=== PATIENT | male | born 1940 | race Caucasian/White ===

== ENCOUNTER 2025-04-23 19:13 | Inpatient (IN) | payer MEDICARE, SELFPAY ==
[2025-04-23 19:16] VITALS: BMI 22.7; BMI 23.6
[2025-04-23 19:17] VITALS: BP 155/70; PULSE 71; RESP 18; TEMP 36.1; O2SAT 96
[2025-04-23] MEDS: Senna/Docusate Sodium 1 Tablet 2 TABLET PO (21:00)
[2025-04-24 05:51] LABS: Hematocrit 31.1 % (40-54); Hemoglobin 10.8 g/dL (13.0-16.5); Immature Granulocytes Count 0.040 X10^3/uL (0.0-0.0); Mean Corp Hgb Conc 34.7 g/dL (32-36); Mean Corpuscular Volume 96.9 fL (80-94); Mean Platelet Vol. 10.3 fl (6.2-12.0); NRBC Flagged by Analyzer 0 % (0-5); Platelet Count 173 K/mm3 (150-450); RBC Distribution Width CV 13.1 % (11.6-14.6); RBC Distribution Width SD 46.0 fl (35.1-43.9); Red Blood Count 3.21 M/mm3 (4.6-6.2); White Blood Count 8.2 K/mm3 (4.4-11.0)
[2025-04-24 06:00] VITALS: BP 166/77; PULSE 78; RESP 20; TEMP 36.9; O2SAT 96
[2025-04-24 06:17] LABS: AST(SGOT) 22 U/L (<=37); Alanine Aminotransfer ALT/SGPT 11 U/L (<=46); Albumin, Serum 3.4 g/dL (3.4-4.8); Alkaline Phosphatase 78 U/L (40-129); Anion Gap 13 (5-15); BUN 13 mg/dL (4-19); BUN/Creat Ratio 8.5 RATIO (10-20); Calcium,Total 9.1 mg/dL (7.6-11.0); Carbon Dioxide 20.9 mmol/L (21.0-32.0); Chloride 106 mmol/L (98-108); Estimated Creatinine Clearance 38.94 ml/min (50-250); Globulin 2.8 g/dL (2.2-4.2); Glucose 169 mg/dL (70-99); Magnesium 1.6 mg/dL (1.5-2.2); Potassium 4.0 mmol/L (3.3-5.1)
[2025-04-24 08:20] VITALS: O2SAT 96
[2025-04-24 08:49] VITALS: BP 166/77; PULSE 78
[2025-04-24] MEDS: metFORMIN (XR) 500 MG Tablet PO ×2 (08:49→16:51)
[2025-04-24] MEDS: Senna/Docusate Sodium 1 Tablet 2 TABLET PO ×2 (08:49→21:08)
[2025-04-24] MEDS: Metoprolol(XL)Succ 50 MG Tablet PO (08:49)
[2025-04-24] MEDS: Cholecalciferol (VIT D3) 25 MCG TABLET (1,000 UNITS) 50 MCG PO (08:49)
--- NOTE | 2025-04-24 09:07 | PCM.HP.STD ---
[facility] Date of Admission: 04/23/25 Date of Service: 04/24/25 Chief Complaint: debility following a fall HPI Narrative EILEEN PORRAS, is a very pleasant 85 M who presents to inpatient rehab following closed head injury as a result of a fall on 04/19/25. Pt states that the last thing he remembered was him coming up the steps and that his had let the dog out. He remembers that the dog caused him to lose his balance and fall. He had +LOC. He did strike the concrete. Per documentation by EMS, he hid have a signficant hemeatoma to the L frontal region and was aao x 1, he was hypothermic, hypotensive and bradycardic. VS improved with warming. He was transported to [facility] ER as a level I trauma. Pt has medical hx of CAD, S/P CABG, DM, prostate issues., CKD III, hypothyroid and HTN. Last ECHO on 05/27/13 showed an LVEF of 55-60% with trace mild MR and thickening of the aortic valve cusps with out reduced EF. He has had catarac surgery bilaterally. During his hospitalization, he did have episodes of A-Fib with RVR. He was started on Metoprolol and has a 30 [address] monitor in place. He was treated for A-Fib with RVR, lactic acidosis, UTI,anemia, closed head injury with concussion precautions, subtle nondisplaced paranasal sinus fracture, He denies utilization of tobacco products. He did state that he has prostate issues and was started on some medication but he discontinued it when he got a sore on my bum. which he attributed to the medication. During this admission to Inpatient rehab, he was observed working with PT and requiring min assistance with ambulation. He is alert and oriented x 3. He does have some short term memory loss following the accident but is able to recall events leading up to the incident. He does state that the actual event is a little fuzzy. He currently denies chest pain, SOB, dizziness or MENDEZ. He has had some urinary retention upon admission to inpatient rehab and he was started on Flomax 0.4mg daily. He states that when he is at home, he enjoys tinkering in the garage and he enjoys helping others improve their classic cars. [place] He has a 150 lb. white lab and a cat. He is very talkative and pleasant. AAO x 3. His only complain is some mild R knee pain following his fall. He does have an abrasion to that knee and has a dressing that is clean, dry and intact. Will continue to monitor mental status. Pt was on Aspirin prior to fall but was discontinued rt his bleeding into his sinuses. The aspirin has be re-initiated during this admission. He does have bruising in various areas of healing to the Left frontal, bilateral eyes and cheeks. The L cheek spills into the L neck. Abrasions noted to L frontal, bilateral hands and knees. All questions answered. *This note was generated with [employer] dictation software. It may contain incorrect words, spelling, and punctuation that were not noted in checking the note before signing. [facility] Medical History (Updated 04/24/25 @ 10:44 by JIAN Garnica) Afib Cataract HTN (hypertension), benign COVID-19 CKD (chronic kidney disease) stage 3, GFR 30-59 ml/min BPH (benign prostatic hyperplasia) Anemia CABG (coronary artery bypass graft) planned Diabetes CAD (coronary artery disease) Home Medications ?Medication ?Instructions ?Recorded ?Last Taken ?Type aspirin 81 mg tablet 81 mg PO DAILY AFIB 04/23/25 Unknown History atorvastatin 40 mg tablet (Lipitor) 40 mg PO QHS cholesterol 04/23/25 Unknown History cholecalciferol (vitamin D3) 50 50 mcg PO DAILY supplement 04/23/25 Unknown History mcg (2,000 unit) capsule glipizide 10 mg tablet 10 mg PO BID diabetes 04/23/25 Unknown History levothyroxine 88 mcg capsule 88 mcg PO DAILY thyroid 04/23/25 Unknown History lisinopril 20 mg tablet 20 mg PO DAILY blood pressure 04/23/25 Unknown History metformin 500 mg tablet,extended 500 mg PO BID diabetes 04/23/25 Unknown History release 24 hr (Glucophage XR) metoprolol succinate 50 mg 50 mg PO DAILY heart rate 04/23/25 Unknown History tablet,extended release 24 hr Allergy/AdvReac Type Severity Reaction Status Date / Time doxazosin (From Cardura) Allergy Unknown unknown Verified 04/23/25 19:19 empagliflozin (From Allergy Unknown unknow Verified 04/23/25 19:19 Jardiance) Family History unable to obtain no significant family history Surgical History Hx of CABG Social History household members: none Smoking Status: Never smoker ROS Constitutional Constitutional: Reports systems reviewed and no addt'l complaints, except as documented Eyes Eyes: Reports systems reviewed and no addt'l complaints, except as documented ENT HEENT: Reports hearing loss Cardiovascular Cardiovascular: Reports as per HPI Respiratory/Chest Respiratory/Chest: Reports systems reviewed and no addt'l complaints, except as documented Gastrointestinal Gastrointestinal: Reports systems reviewed and no addt'l complaints, except as documented Genitourinary Genitourinary: Reports other Details: prostate issues Musculoskeletal Musculoskeletal: Reports as per HPI and other Details: R knee pain from fall Integumentary Integumentary: Reports wounds and other Details: multiple from fall Neurologic Neurologic: Reports systems reviewed and no addt'l complaints, except as documented Psychiatric Psychiatric: Reports systems reviewed and no addt'l complaints, except as documented Endocrine Endocrinology: Reports systems reviewed and no addt'l complaints, except as documented Hematologic/Lymphatic Hematologic/Lymphatic: Reports systems reviewed and no addt'l complaints, except as documented Allergic/Immunologic Allergic/Immunologic: Reports systems reviewed and no addt'l complaints, except as documented Vital Signs Vital Signs Vital Signs: 04/23/25 19:17 04/23/25 20:51 04/24/25 06:00 Temperature 97 F L 98.5 F Temperature Source Temporal Oral Pulse Rate 71 78 Respiratory Rate 18 20 H Respiratory Effort Normal Respiratory Depth Normal Respiratory Pattern Normal Blood Pressure 155/70 H 166/77 H Blood Pressure Mean 98 106 Blood Pressure Source Monitor Monitor Blood Pressure Position Semi-Fowlers Semi-Fowlers Blood Pressure Location Left Arm Right Arm Pulse Ox 96 96 Oxygen Delivery Method Room Air Room Air Room Air 04/24/25 08:20 04/24/25 08:49 Temperature Temperature Source Pulse Rate 78 Respiratory Rate Respiratory Effort Respiratory Depth Respiratory Pattern Blood Pressure 166/77 H Blood Pressure Mean Blood Pressure Source Blood Pressure Position Blood Pressure Location Pulse Ox 96 Oxygen Delivery Method Room Air Weight Weight: 174 lb Body Mass Index (BMI) 23.6 Physical Exam Narrative 30 day [address] monitor in place to L chest wall Const alert, oriented x3, no apparent distress, average body habitus and well nourished General Appearance: cooperative Orientation / Consciousness: awake, oriented to person, oriented to place and oriented to time Exam Limitations: no limitations HEENT normocephalic HEENT Narrative: multiple areas of bruising in various stages of healing.(bilateral periorbital, L frontal, bilateral cheeks and the left side descends into the L side of the neck.) Abrasions to the L frontal and bridge of the nose. Head and Scalp: abrasion Results Lab / Micro Data Attestation: I reviewed the patient's lab results. Lab results narrative: from prior hospitalization and current. 04/24/25 05:32 04/24/25 05:32 Labs: Laboratory Results - last 24 hr 04/23/25 20:26: POC Glucose 143 H 04/24/25 05:32: WBC 8.2, RBC 3.21 L, Hgb 10.8 L, Hct 31.1 L, MCV 96.9 H, MCH 33.6 H, MCHC 34.7, RDW Std Deviation 46.0 H, RDW Coeff of Maryjane 13.1, Plt Count 173, MPV 10.3, Immature Gran % (Auto) 0.500, Neut % (Auto) 67.8, Lymph % (Auto) 17.4 L, Hopkins % (Auto) 9.7, Eos % (Auto) 4.2, Baso % (Auto) 0.4, Absolute Neuts (auto) 5.5, Absolute Lymphs (auto) 1.42, Nucleated RBC % 0, Sodium 139, Potassium 4.0, Chloride 106, Carbon Dioxide 20.9 L, Anion Gap 13, BUN 13, Creatinine 1.55 H, Estim Creat Clear Calc 38.94 L, Est GFR (MDRD) Non-Af 44 L, BUN/Creatinine Ratio 8.5 L, Glucose 169 H, Calcium 9.1, Phosphorus 3.2, Magnesium 1.6, Total Bilirubin 0.53, AST 22, ALT 11, Alkaline Phosphatase 78, Total Protein 6.2, Albumin 3.4, Globulin 2.8, Albumin/Globulin Ratio 1.2 04/24/25 06:50: POC Glucose 159 H Assessment & Plan Assessment/Plan (1) Closed head injury with concussion: QUALIFIERS: Encounter type: subsequent encounter Loss of consciousness presence/duration: with LOC of 30 min or less Qualified Code(s): S06.0X1D - Concussion with loss of consciousness of 30 minutes or less, subsequent encounter (2) Physical debility: (3) BPH (benign prostatic hyperplasia): QUALIFIERS: Lower urinary tract symptom presence: symptoms present Lower urinary tract symptom detail: incomplete bladder emptying Qualified Code(s): N40.1 - Benign prostatic hyperplasia with lower urinary tract symptoms; R39.14 - Feeling of incomplete bladder emptying (4) Afib: QUALIFIERS: Atrial fibrillation type: unspecified Qualified Code(s): I48.91 - Unspecified atrial fibrillation (5) HTN (hypertension): QUALIFIERS: Hypertension type: primary hypertension Qualified Code(s): I10 - Essential (primary) hypertension (6) Hypothyroid: QUALIFIERS: Hypothyroidism type: unspecified Qualified Code(s): E03.9 - Hypothyroidism, unspecified (7) CKD (chronic kidney disease) stage 3, GFR 30-59 ml/min: QUALIFIERS: Chronic kidney disease stage 3 subtype: unspecified whether 3a or 3b Qualified Code(s): N18.30 - Chronic kidney disease, stage 3 unspecified (8) Diabetes mellitus, type 2: QUALIFIERS: Diabetes mellitus blow down operator insulin use: without penitentiary use Diabetes mellitus complication status: with kidney complications Diabetes mellitus complication detail: with chronic kidney disease Chronic kidney disease stage 3 subtype: unspecified whether 3a or 3b PLAN: Plan *Continue with therapies PT/OT/ST *Scheduled Tylenol 650 mg p.o. every 6 hours for pain *Aspirin 81 mg p.o. daily *Atorvastatin 20 mg p.o. nightly *Hypoglycemic precautions *Fall precautions *Glipizide 10 mg p.o. twice daily *Insulin lispro AC/at bedtime sliding scale as needed labs *levothyroxine 88 mcg p.o. daily *Blood sugars per protocol *Lisinopril 20 mg p.o. daily *Metoprolol XL succinate 50 mg p.o. daily *Tamsulosin hydrocloride 0.4 mg p.o. daily *Strict monitoring of I's and O's *Bladder scan for urinary retention *Carb controlled diet *CAMRYN ching *SCDs if in bed and not ambulating *assess for changes in mental status *Event monitor in place *Monitor CBC and BMP every 3 days Charges/Coding Visit Charges Inpatient E&M: 59265 Init Hosp L2
--- NOTE | 2025-04-24 10:51 | REHABEVAL_ITS ---
Admission Information Primary Diagnosis:: Debility following a fall with closed head injury Status Changes from Prescreening?: No changes Identified Actual Problem List:: Falls, Skin Intergrity, Cognitve Impr/Memory Loss, Mobility Impaired, Self Care Deficit, Know.Dfct/Disease Process, Know.Dfct of Medicaitons, Diabetes, Hyperglycemia and BP, Hypertension Potential Problem List:: DVT, Bleeding, Infection, UTI, Falls, Skin Integrity and Depression Risk of Complications DVT: CAMRYN Hose and Sequential Compression Device Bleeding: Monitor Lab Values, Wound, if applicable, to be assessed every shift. and Stroke patients assessed for lethargy or change in status. Infection: Clinical Staff to Monitor for S/S of infection: Urinary Tract Infection: Monitor for frequency, burning, discomfort, or incontinence. Falls: Patient will be evaluated for Fall Precautions and Patient will be placed on Fall Precautions as indicated per protocol. Skin Breakdown: Nursing will assess skin daily using assessment tool. Pain: Clinical staff will assess patient's pain level per protocol., Medications will be given, if needed, and the pain level reassessed. and Other methods: Massage, distraction, decrease stimulus, etc. used PRN. Plan of Care Patient requires physician specializing in physical medicine and rehab oversight to provide close medical supervision of rehab issues including: Pain Management, Bowel and Bladder, Medical and co-morbidity Management, DVT prophylaxis, Rehabilitation Leadership and Coordination of treatment team Patient needs Physical Therapy: For a minimum of 1 hour and At least 5 out of 7 days Patient needs Physical Therapy to improve:: Mobility, Strengthening, Transfers, Stretching, ROM, Endurance, Stairs, Gait and Balance Patient needs Occupational Therapy: For a minimum of 1 hour and At least 5 out of 7 days Patient needs Occupational Therapy to improve ADL's incl.: Eating, Grooming, Bathing, Dressing, Toileting, Toilet transfers, Community Reintegration, Higher functioning activities, Household tasks, Adaptive Equipment, Splinting and Other activities as determined Patient requires speech therapy: For a minimum of 1 hour and At least 5 out of 7 days Patient requires speech therapy for: Swallowing, Cognition, Language Skills and Compensatory Strategies Patient requires 24/7 Rehabilitation Nursing for: Pain Issues, Identifying and preventing risk factors, Monitoring and reporting current medical conditions, Assisting with ambulation, transfer, and all ADL's, Teaching patients about disease process and medications, Family teaching, Providing safe environment, Bowel and Bladder Issues, Skin integrity and Medication Management Patient needs Route Process Administrator/ Case Management for: Discharge Planning, Arranging Home Equipment or Services and Family Interventions Patient needs Dietary and Nutrition Services for: Adequate Nutrition, Nutritional Supplements and Nutritional Education Goals Goals Patient will remain: free from falls and or injury at time of discharge. Patient will perform eating at: Standby Assist. Patient will perform bed mobility at: Standby Assist. Patient will complete transfers from bed to chair at: Standby Assist. Patient will ambulate: 100 feet and with LRD Patient will complete upper body dressing at: MOD I level of assist. Patient will complete lower body dressing at: MOD I level of assist. Patient will complete toileting at: MOD I level of assist. Patient will perform bathing at: MOD I level of assist. Patient will complete grooming at: MOD I level of assist. Patient will complete home management skills at: MOD I level of assist. Patient will achieve: - (1 curb step) Patient will have pain level of: of 3 or less Patient's skin will: remain intact Patient will receive: adequate nutrition. Discharge Planning Pt Prognosis for Sig. Practical Improv. w/in Reasonable Time: Good Estimated Length of stay (days): 14 Anticipated D/C Destination: Home w/ family or friends Was Preadmission Assessment Accurate?: Yes
[2025-04-24 18:00] VITALS: BP 144/70; PULSE 70; RESP 16; TEMP 37.2; O2SAT 97
[2025-04-24 21:00] VITALS: BP 131/59; PULSE 62; RESP 16; TEMP 36.9; O2SAT 95
[2025-04-24 22:00] VITALS: RESP 16
[2025-04-25 06:00] VITALS: BP 131/65; PULSE 77; RESP 16; TEMP 37.1; O2SAT 95; BMI 22.3
[2025-04-25 09:27] VITALS: PULSE 77
[2025-04-25] MEDS: metFORMIN (XR) 500 MG Tablet PO ×2 (09:27→16:42)
[2025-04-25] MEDS: Metoprolol(XL)Succ 50 MG Tablet PO (09:27)
[2025-04-25] MEDS: Cholecalciferol (VIT D3) 25 MCG TABLET (1,000 UNITS) 50 MCG PO (09:27)
[2025-04-25] MEDS: Senna/Docusate Sodium 1 Tablet 2 TABLET PO ×2 (09:27→20:40)
--- NOTE | 2025-04-25 10:33 | PN_ITS ---
Subjective Subjective Afebrile VSS -systolic blood pressures have been mildly elevated but the diastolics are always within goal. Heart rate is within normal limits. Maintaining appropriate oxygen saturation on RA-95 to 97%. Oral intake - FOOD good FLUIDS poor's are under 190. No hypoglycemia. Currently taking glipizide 10 mg twice daily and metformin 500 mg twice daily. If his kidney function continues to deteriorate we will need to consider discontinuing glipizide and starting Amaryl and discontinuing metformin due to increased risk for acidosis. Discussed with nursing - no problems that need addressed Reviewed the THERAPY notes -scored only 30 out of a possible 50 on the BCAT. Medication list reviewed. He was started on Flomax yesterday for urine retention. I reviewed all the labs from yesterday. Hemoglobin is 10.8 and we have no baseline on this patient. MCV is mildly increased at 96.9 and the RDW is elevated. Platelets are within normal limits. Differential was unremarkable. Sodium is 139 and the potassium is 4.0. BUN is 13 and the creatinine is 1.55. Creatinine at the previous hospital ranged from 1.55-1.66. GFR is 44 which is consistent with stage IIIb chronic renal failure. Calcium is 9.1. Magnesium is low at 1.6. LFTs are normal. Jonathan denies lightheadedness, vertigo, cephalgia, chest pain, shortness of breath, cough, nausea/vomiting/abdominal pain, dysuria and calf tenderness. He really has no complaints today. Objective Data Objective Data Vital Signs: Vital Signs Temp Pulse Resp BP Pulse Ox O2 Del Method 98.8 F 77 16 131/65 H 95 Room Air 04/25/25 06:00 04/25/25 09:27 04/25/25 06:00 04/25/25 06:00 04/25/25 06:00 04/25/25 06:00 Oxygen Delivery Method Room Air Weight: 164 lb 8.929 oz Body Mass Index (BMI) 22.3 Intake & Output: Intake and Output for Last 24 Hours 04/23/25 04/24/25 04/25/25 23:59 23:59 23:59 Intake Total 630 / 630 390 / 390 Output Total 100 / 300 2150 / 2150 550 / 550 Balance -100 / -300 -1520 / -1520 -160 / -160 Lab / Micro Data 04/28/25 05:35 04/28/25 05:35 Labs: Laboratory Results - last 24 hr 04/24/25 11:21: POC Glucose 188 H 04/24/25 16:29: POC Glucose 156 H 04/24/25 21:05: POC Glucose 181 H 04/25/25 06:46: POC Glucose 126 H Physical Exam Const alert and no apparent distress General Appearance: cooperative Resp normal respiratory effort and clear to auscultation bilaterally Cardio regular rate, regular rhythm, no rub and no gallops Cardio Narrative: No ectopy. Heart monitor is present on the chest. GI normal to inspection, nondistended, normoactive bowel sounds, soft to palpation and non-tender Extremity no calf tenderness General Extremity: Negative for edema Skin Skin Narrative: Multiple healing abrasions and bruising on the face. Assessment & Plan Assessment/Plan (1) Physical debility: (2) Closed head injury with concussion: QUALIFIERS: Encounter type: subsequent encounter Loss of consciousness presence/duration: with LOC of 30 min or less Qualified Code(s): S06.0X1D - Concussion with loss of consciousness of 30 minutes or less, subsequent encounter PLAN: Due to a fall caused by his dog. (3) BPH (benign prostatic hyperplasia): QUALIFIERS: Lower urinary tract symptom presence: symptoms present Lower urinary tract symptom detail: incomplete bladder emptying Qualified Code(s): N40.1 - Benign prostatic hyperplasia with lower urinary tract symptoms; R39.14 - Feeling of incomplete bladder emptying PLAN: With urine retention. Flomax started. (4) Afib: QUALIFIERS: Atrial fibrillation type: unspecified Qualified Code(s): I48.91 - Unspecified atrial fibrillation (5) HTN (hypertension): QUALIFIERS: Hypertension type: primary hypertension Qualified Code(s): I10 - Essential (primary) hypertension (6) Hypothyroid: QUALIFIERS: Hypothyroidism type: unspecified Qualified Code(s): E 03.9 - Hypothyroidism, unspecified (7) CKD (chronic kidney disease) stage 3, GFR 30-59 ml/min: QUALIFIERS: Chronic kidney disease stage 3 subtype: stage 3b (GFR 30-44) Qualified Code(s): N18.32 - Chronic kidney disease, stage 3b (8) Diabetes mellitus, type 2: QUALIFIERS: Diabetes mellitus chcf insulin use: without terminal block assembler use Diabetes mellitus complication status: with kidney complications D iabetes mellitus complication detail: with chronic kidney disease Chronic kidney disease stage 3 subtype: stage 3b (GFR 30-44) Chronic kidney disease stage: stage 3 (moderate) Qualified Code(s): E11.22 - Type 2 diabetes mellitus with diabetic chronic kidney disease; N18.32 - Chronic kidney disease, stage 3b (9) Hypomagnesemia: (10) Metabolic acidosis: (11) Normochromic normocytic anemia: PLAN: Plan 1. Continue therapy 2. Start a magnesium supplement 3. Recheck a BMP, magnesium and H&H on Monday Charges/Coding Visit Charges Inpatient E&M: 98799 Subs Hosp L1
[2025-04-25 17:05] VITALS: BP 149/66; PULSE 53; RESP 17; TEMP 36.8; O2SAT 99
[2025-04-25] MEDS: Magnesium Chloride 64 MG Delay Rel.Tablet 128 MG PO (20:40)
[2025-04-26 05:20] VITALS: BP 146/63; PULSE 77; RESP 17; TEMP 36.4; O2SAT 95
[2025-04-26 08:52] VITALS: PULSE 77
[2025-04-26] MEDS: Senna/Docusate Sodium 1 Tablet 2 TABLET PO ×2 (08:52→23:10)
[2025-04-26] MEDS: Metoprolol(XL)Succ 50 MG Tablet PO (08:52)
[2025-04-26] MEDS: metFORMIN (XR) 500 MG Tablet PO ×2 (08:53→16:44)
[2025-04-26] MEDS: Magnesium Chloride 64 MG Delay Rel.Tablet 128 MG PO ×2 (08:53→23:10)
[2025-04-26] MEDS: Cholecalciferol (VIT D3) 25 MCG TABLET (1,000 UNITS) 50 MCG PO (08:54)
[2025-04-26 18:00] VITALS: BP 144/69; PULSE 68; RESP 16; TEMP 37.2; O2SAT 98
[2025-04-27 06:00] VITALS: BP 143/67; PULSE 68; RESP 17; TEMP 37.6; O2SAT 98
[2025-04-27 07:04] VITALS: O2SAT 95
[2025-04-27 09:15] VITALS: BP 128/72; PULSE 83
[2025-04-27] MEDS: Cholecalciferol (VIT D3) 25 MCG TABLET (1,000 UNITS) 50 MCG PO (09:15)
[2025-04-27] MEDS: Magnesium Chloride 64 MG Delay Rel.Tablet 128 MG PO ×2 (09:15→21:37)
[2025-04-27] MEDS: Metoprolol(XL)Succ 50 MG Tablet PO (09:15)
[2025-04-27] MEDS: Senna/Docusate Sodium 1 Tablet 2 TABLET PO ×2 (09:16→21:37)
[2025-04-27] MEDS: metFORMIN (XR) 500 MG Tablet PO ×2 (09:16→17:35)
[2025-04-27 18:00] VITALS: BP 137/61; PULSE 72; RESP 16; TEMP 36.6; O2SAT 96
[2025-04-27 21:30] VITALS: BP 139/69; PULSE 62; RESP 16; TEMP 37.1; O2SAT 96
[2025-04-28 05:42] LABS: Hematocrit 28.6 % (40-54); Hemoglobin 9.8 g/dL (13.0-16.5)
[2025-04-28 06:00] VITALS: BP 141/60; PULSE 71; RESP 16; TEMP 36.3; O2SAT 96
[2025-04-28 06:06] LABS: Anion Gap 11 (5-15); BUN 28 mg/dL (4-19); BUN/Creat Ratio 17.1 RATIO (10-20); Calcium,Total 9.7 mg/dL (7.6-11.0); Carbon Dioxide 20.0 mmol/L (21.0-32.0); Chloride 108 mmol/L (98-108); Estimated Creatinine Clearance 35.84 ml/min (50-250); Glucose 146 mg/dL (70-99); Magnesium 1.6 mg/dL (1.5-2.2); Potassium 4.3 mmol/L (3.3-5.1)
--- NOTE | 2025-04-28 08:01 | PCM.PROGNOTE ---
Subjective Subjective Jonathan was seen on team rounds today. Family was present in the room. All questions were answered to their satisfaction. Afebrile VSS -blood pressure over the weekend has ranged from 128/72 to 146/63. Diastolics are always within normal limits. Systolics are mildly elevated usually. Heart rate is ranged from 62-83. Maintaining appropriate oxygen saturation on RA Oral intake - FOOD good FLUIDS fair to good The blood sugar record was reviewed. Blood sugars over the weekend been under 160. No hypoglycemia. Discussed with nursing - no problems that need addressed Reviewed the THERAPY notes -speech therapy administered the verbal test of practical judgment today and the results indicate marked impairment in everyday judgment and decision making. He had limited ability to identify safe and appropriate responses to common ADL and IADL situations. Findings support the need for supervision and assistance with med management, emergency planning and other high-level daily tasks. Medication list reviewed. Hemoglobin today is 9.8, down from 10.8 on 04/24/2025. Sodium is 139 and the potassium is 4.3. Serum bicarb is mildly decreased at 20 from 20.9 on 04/24/2025. The BUN is up to 28 from 13 and the creatinine is up from 1.55-1.62 which is within his baseline. Magnesium is still low at 1.6. Jonathan denies lightheadedness, visual disturbance, cephalgia, chest pain, shortness of breath, cough, nausea/vomiting/abdominal pain, calf tenderness and dysuria. The last 3 postvoid residuals are elevated but none over 300. Family tells me that they have noticed that his memory has been declining. He has not seen a neurologist. Objective Data Objective Data Vital Signs: Vital Signs Temp Pulse Resp BP Pulse Ox O2 Del Method 97.3 F L 71 16 141/60 H 96 Room Air 04/28/25 06:00 04/28/25 06:00 04/28/25 06:00 04/28/25 06:00 04/28/25 06:00 04/28/25 06:00 Oxygen Delivery Method Room Air Weight: 164 lb 8.929 oz Body Mass Index (BMI) 22.3 Intake & Output: Intake and Output for Last 24 Hours 04/26/25 04/27/25 04/28/25 23:59 23:59 23:59 Intake Total 1430 / 1430 1175 / 1175 300 / 300 Output Total 1300 / 1725 1400 / 1600 875 / 875 Balance 130 / -295 -225 / -425 -575 / -575 Lab / Micro Data 04/28/25 05:35 04/28/25 05:35 Labs: Laboratory Results - last 24 hr 04/27/25 11:43: POC Glucose 164 H 04/27/25 16:00: POC Glucose 147 H 04/27/25 21:34: POC Glucose 130 H 04/28/25 05:35: Hgb 9.8 L, Hct 28.6 L, Sodium 139, Potassium 4.3, Chloride 108, Carbon Dioxide 20.0 L, Anion Gap 11, BUN 28 H, Creatinine 1.62 H, Estim Creat Clear Calc 35.84 L, Est GFR (MDRD) Non-Af 42 L, BUN/Creatinine Ratio 17.1, Glucose 146 H, Calcium 9.7, Magnesium 1.6 04/28/25 06:39: POC Glucose 128 H Physical Exam Const alert and no apparent distress General Appearance: cooperative HEENT moist oral mucous membranes Resp normal respiratory effort and clear to auscultation bilaterally Cardio regular rate, regular rhythm, no rub and no gallops Cardio Narrative: No ectopy. Heart monitor is present on the chest. GI normal to inspection, nondistended, normoactive bowel sounds, soft to palpation and non-tender Extremity no calf tenderness General Extremity: Negative for edema Skin Skin Narrative: Most of the eschars on his forehead have fallen off or picked off by Jonathan. He has 1 suture in the left forehead that will need to be removed today. There is no redness, no discharge. He has resolving ecchymosis on both sides of his face. Assessment & Plan Assessment/Plan (1) Physical debility: (2) Closed head injury with concussion: QUALIFIERS: Encounter type: subsequent encounter Loss of consciousness presence/duration: with LOC of 30 min or less Qualified Code(s): S06.0X1D - Concussion with loss of consciousness of 30 minutes or less, subsequent encounter (3) BPH (benign prostatic hyperplasia): QUALIFIERS: Lower urinary tract symptom detail: incomplete bladder emptying Lower urinary tract symptom presence: symptoms present Qualified Code(s): N40.1 - Benign prostatic hyperplasia with lower urinary tract symptoms; R39.14 - Feeling of incomplete bladder emptying (4) Afib: QUALIFIERS: Atrial fibrillation type: unspecified Qualified Code(s): I48.91 - Unspecified atrial fibrillation (5) HTN (hypertension): QUALIFIERS: Hypertension type: primary hypertension Qualified Code(s): I10 - Essential (primary) hypertension (6) Hypothyroid: QUALIFIERS: Hypothyroidism type: unspecified Qualified Code(s): E03.9 - Hypothyroidism, unspecified (7) CKD (chronic kidney disease) stage 3, GFR 30-59 ml/min: QUALIFIERS: Chronic kidney disease stage 3 subtype: stage 3b (GFR 30-44) Qualified Code(s): N18.32 - Chronic kidney disease, stage 3b (8) Diabetes mellitus, type 2: QUALIFIERS: Chronic kidney disease stage: stage 3 (moderate) Chronic kidney disease stage 3 subtype: stage 3b (GFR 30-44) Diabetes mellitus complication detail: with chronic kidney disease Diabetes mellitus complication status: with kidney complications Diabetes mellitus longterm insulin use: without watermelon inspector use Qualified Code(s): E11.22 - Type 2 diabetes mellitus with diabetic chronic kidney disease; N18.32 - Chronic kidney disease, stage 3b (9) Hypomagnesemia: (10) Metabolic acidosis: (11) Normochromic normocytic anemia: (12) Cognitive dysfunction: PLAN: Plan 1. Continue therapy 2. Discontinue metformin due to mild metabolic acidosis. Continue to monitor blood sugars AC and at bedtime. 3. Checking Hemoccult stool 4. Continue magnesium chloride 128 mg twice daily and recheck, magnesium at the end of the week. If it is still low will administer intravenous mag sulfate. 5. Check orthostatic vital signs today since he is on Flomax. 6. He is doing well with physical therapy. He will need supervision at home and med management. Will need to determine with family who is managing finances and medications. He is doing very well with physical and Occupational Therapy. His family is able to provide med management and supervision. They would like to take him home tomorrow. We discussed seeing neurology for traumatic brain injury and possible dementia but they prefer to discuss this with their primary care physician. Will plan on discharge tomorrow to home with ongoing speech therapy. Charges/Coding Visit Charges Inpatient E&M: 15907 Subs Hosp L2
[2025-04-28] MEDS: Cholecalciferol (VIT D3) 25 MCG TABLET (1,000 UNITS) 50 MCG PO (08:10)
[2025-04-28] MEDS: Magnesium Chloride 64 MG Delay Rel.Tablet 128 MG PO ×2 (08:11→22:43)
[2025-04-28] MEDS: Senna/Docusate Sodium 1 Tablet 2 TABLET PO (08:11)
[2025-04-28 08:12] VITALS: PULSE 71
[2025-04-28] MEDS: Metoprolol(XL)Succ 50 MG Tablet PO (08:12)
[2025-04-28 11:25] VITALS: BP 107/62; BP 111/60; BP 136/60; PULSE 69; PULSE 74
[2025-04-28 12:04] LABS: Vitamin B12 198 pg/mL (180-914)
--- NOTE | 2025-04-28 12:43 | CASEMGMT ---
Addendum entered by Wendy Cruz 04/28/25 13:19: Asked about advance directives and pt does not have any completed. SW cannot complete currently with cognition. SW encouraged to have PCP evaluate completing those forms in the future, otherwise, is NOK. expressed understanding. Original Note: Social Work IDT met with patient, and dtr for Team meeting. 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 Educated to [facility] insurance with [employer] 04/29 and continued stay is not guaranteed with each review. Pt is progressing well; [place]. Pt will need 12/12 supervision/assist with cognitive activities. Pt has poor safety awareness. IDT offered to set DC date and family agreeable, requesting tomorrow 04/29. IDT agreeable. Pt has no DME needs. Recommending outpatient ST therapy. prefers [place] area. SW to review options and coordinate with to schedule first appt. Plan: DC home with 04/29, Outpatient [facility] Wendy Cruz [employer]ERR[employer]
--- NOTE | 2025-04-28 14:39 | PCM.DC ---
Discharge Instructions DC O2, CPAP, BIPAP needs Home O2 Discharge instructions: No Dressing / Incision Discharge Activity: May Not Drive and Use Walker (or a cane) Weight Bearing Status: Full weight bearing Dressing / Incision Call your doctor if you observe: Fever of 101 or Higher, Inability to urinate, Shortness of breath, Dizziness, Fainting spells, Swelling in the ankles, Chest pain, Increased palpitations (irregular heartbeat), Calf discomfort, Uncontrolled pain and - (STROKE symptoms: facial droop, slurred speech, inability to get words out, weakness on 1 side of the body and not the other, numbness on 1 side of the body and not the other, inability to maintain your balance sitting or standing, vertigo. ) Follow Up Care Please Follow Up With: Toyin Maxwell DO When: 04/30/2025 at 11 AM Test Results: Test results from this visit will be discussed in further detail at your follow-up appointment, if applicable. Pending Tests Upon Discharge: None Discharge Plan Admission Admit Date/Time: 04/23/25 19:13 Primary Reason for Your Visit: Closed head injury/TBI Attending Provider: Mansi Mazariegos Primary Care Provider: Toyin Maxwell Instructions Patient Instructions: Alzheimer Disease, A-Fib Additional Instructions / Restrictions: 1. You had some small fractures of the sinuses with bleeding into the sinuses. Should you develop any face pain, fevers, dental pain, purulent discharge from the nose call your family physician. 2. You have problems with your prostate and you do not completely empty your bladder when you urinate. You were started on a medication called Flomax to improve the emptying of the bladder. In men who retain urine they are more likely to get urinary tract infections. The symptoms of urinary tract infection are burning with urination, increased frequency of urination, urinary urgency, nausea/vomiting, flank pain and increased confusion. If you have any of the symptoms call your family doctor. 3. You had a problem with the rhythm of your heart called atrial fibrillation. Atrial fibrillation can be intermittent and it increases the risk of stroke approximately 5 times. You have not been in atrial fibrillation when I have examined you on rehab. You are wearing a heart monitor and you will need to mail this back at the conclusion of the 30-day monitoring period. A management information systems director will review this and send a report to your primary care doctor. If you do have atrial fibrillation you may need to start an anticoagulant to prevent strokes. 4. The speech therapist at the hospital did an evaluation of your thought processes. We did a test called a brief cognitive assessment tool and it is a 50 point test. Out of 50 points you scored a 30 which is consistent with significant cognitive dysfunction. I suspect you have an underlying problem with memory which may have been exacerbated by the traumatic brain injury. I have given you some literature to read about Alzheimer's disease and possible treatments. Your doctor may want to refer you to a neurologist to be evaluated. You should have someone help you set up your pillboxes and manage your medications. 5. Your magnesium level is low and this can cause atrial fibrillation. You have been started on a magnesium supplement that you will take twice daily. Your doctor will want to repeat your magnesium level in another couple weeks. 6. You have chronic kidney disease. There are 5 stages of kidney failure. You are in stage III which is moderate kidney disease. Metformin can make acid accumulate in your blood when you have chronic kidney disease and so this medication was discontinued. You will continue to take glyburide. If your kidney function gets worse you will likely need to stop glimepiride and transition to another diabetic medication called Amaryl which is not excreted through the kidneys. Your doctor will want to keep track of your kidney function. 7. Your blood pressure drops a little when you go from lying to sitting and sitting to standing. You have no symptoms with this mild drop in blood pressures so there is no need to do anything at this point other than to make sure you drink plenty of fluids during the day. 8. If you or your family have any questions after you leave rehab please do not hesitate to call me. OFFICE: [phone] CELL: [phone] NURSES STATION ON REHAB: [phone] Discharge Orders/Prescriptions Prescriptions: New acetaminophen 325 mg Tablet 650 mg PO Q6H PRN PRN (Reason: Pain Score 1-10) Qty: 1 0RF tamsulosin 0.4 mg Capsule 0.4 mg PO DAILY@1730 Qty: 30 0RF magnesium chloride [Mag 64] 64 mg Tablet,Delayed Release (Dr/Ec) 128 mg PO BID Qty: 60 0RF Continued aspirin 81 mg tablet 81 mg PO DAILY cholecalciferol (vitamin D3) 50 mcg (2,000 unit) capsule 50 mcg PO DAILY glipizide 10 mg tablet 10 mg PO BID levothyroxine 88 mcg capsule 88 mcg PO DAILY lisinopril 20 mg tablet 20 mg PO DAILY metoprolol succinate 50 mg tablet extended release 24 hr 50 mg PO DAILY atorvastatin [Lipitor] 40 mg tablet 40 mg PO QHS Qty: 30 0RF Discontinued metformin [Glucophage XR] 500 mg tablet extended release 24 hr 500 mg PO BID Referrals / Follow Up: Toyin Maxwell DO [Primary Care Provider, Family Practice] - 04/30/25 11:00 am Disposition Disposition (needs filled in before D/C Order can be placed): Home, Self Care
[2025-04-28] MEDS: 0.9% Normal Saline (500mL Bag) 500 ML 999 ML IV (16:09)
[2025-04-28] MEDS: 0.9% Saline Lock 10 ML Syringe IV (16:14)
[2025-04-28] MEDS: 0.9% Normal Saline (1000mL) 1,000 ML 75 ML IV (17:16)
[2025-04-28 18:00] VITALS: BP 112/58; PULSE 72; RESP 16; TEMP 37; O2SAT 96
--- NOTE | 2025-04-28 18:33 | NURSING ---
suture removed above L eye per doctors Order, pt tolerated well.
[2025-04-28 22:00] VITALS: RESP 16
[2025-04-29 06:00] VITALS: BP 122/59; BP 131/65; BP 156/65; PULSE 68; PULSE 72; PULSE 80; RESP 16; TEMP 36.9; O2SAT 96
[2025-04-29] MEDS: 0.9% Normal Saline (1000mL) 1,000 ML 75 ML IV (06:55)
[2025-04-29 07:42] VITALS: BP 156/65; PULSE 65
[2025-04-29] MEDS: Metoprolol(XL)Succ 50 MG Tablet PO (07:42)
[2025-04-29] MEDS: Cholecalciferol (VIT D3) 25 MCG TABLET (1,000 UNITS) 50 MCG PO (07:42)
[2025-04-29] MEDS: Magnesium Chloride 64 MG Delay Rel.Tablet 128 MG PO (07:42)
--- NOTE | 2025-04-29 09:31 | DS.PCM_ITS ---
Providers Date of Admission: 04/23/25 Date of Discharge: 04/29/25 Primary Care Physician: Dr. Toyin Maxwell DO Reason For Visit: CLOSED HEAD INJURY Diagnosis Discharge Diagnosis (1) Physical debility: Status: Acute Code(s): R53.81 - Other malaise Plan: Secondary to a mechanical fall with closed head injury/TBI. (2) Closed head injury with concussion: Status: Acute Code(s): S06.0XAA - Concussion with loss of consciousness status unknown, initial encounter Qualifiers: Encounter type: subsequent encounter Loss of consciousness presence/duration: with LOC of 30 min or less Qualified Code(s): S06.0X1D - Concussion with loss of consciousness of 30 minutes or less, subsequent encounter (3) Afib: Status: Acute Code(s): I48.91 - Unspecified atrial fibrillation Qualifiers: Atrial fibrillation type: unspecified Qualified Code(s): I48.91 - Unspecified atrial fibrillation (4) Hypomagnesemia: Status: Acute Code(s): E83.42 - Hypomagnesemia (5) Metabolic acidosis: Status: Acute Code(s): E87.20 - Acidosis, unspecified Plan: Patient has chronic renal failure stage IIIb. Metformin was discontinued due to its propensity to cause metabolic acidosis. (6) Vitamin B12 deficiency: Status: Chronic Code(s): E53.8 - Deficiency of other specified B group vitamins Plan: B12 level is only 198. In 6 factor at the end however it is not back at the time of discharge from acute rehab. (7) Macrocytic anemia with vitamin B12 deficiency: Status: Acute Code(s): D51.8 - Other vitamin B12 deficiency anemias Plan: Not known if this is acute or chronic. We have no chronic baseline labs on this patient. (8) Cognitive dysfunction: Status: Chronic Code(s): F09 - Unspecified mental disorder due to known physiological condition Plan: Family has noticed some problems with memory. He was administered the BCAT (brief cognitive assessment tool) and scored only 30 out of 50. He has poor judgment and poor safety awareness. He will need 24/7 supervision for now and someone else to manage his medications. 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 He is also B12 deficient which can contribute to memory loss. It can also contribute to disequilibrium. It will be interesting to see if his cognition improves with normalization of the B12 level. (9) HTN (hypertension): Status: Chronic Code(s): I10 - Essential (primary) hypertension Qualifiers: Hypertension type: primary hypertension Qualified Code(s): I10 - Essential (primary) hypertension Plan: Diastolics are always within goal of less than 80. He has mild elevations in systolic blood pressure but, he has orthostatic hypotension so the mild elevation is tolerated because he is asymptomatic. (10) Hypothyroid: Status: Chronic Code(s): E03.9 - Hypothyroidism, unspecified Qualifiers: Hypothyroidism type: unspecified Qualified Code(s): E03.9 - Hypothyroidism, unspecified Plan: TSH is normal at 3.97. (11) Diabetes mellitus, type 2: Status: Chronic Code(s): E11.9 - Type 2 diabetes mellitus without complications Qualifiers: Chronic kidney disease stage: stage 3 (moderate) Chronic kidney disease stage 3 subtype: stage 3b (GFR 30-44) Diabetes mellitus complication detail: w ith chronic kidney disease Diabetes mellitus complication status: with kidney complications Diabetes mellitus alf insulin use: without terminologist use Q ualified Code(s): E11.22 - Type 2 diabetes mellitus with diabetic chronic kidney disease; N18.32 - Chronic kidney disease, stage 3b Plan: Blood sugars are all under 200 with no hypoglycemia. Metformin was discontinued due to mild metabolic acidosis. He has chronic stage IIIb renal failure and if things decline will likely need to transition from glipizide to Amaryl since Amaryl is excreted primarily by the liver and not by the kidneys. (12) BPH loc w urin obs/LUTS: Status: Chronic Code(s): N40.1 - Benign prostatic hyperplasia with lower urinary tract symptoms Plan: He was previously on Flomax but he discontinued this because he thought it caused a sore on his buttocks. He does retain urine. The highest postvoid residual was 388 then after starting Flomax the highest residual is 201. He does have mild orthostatic hypotension but he is asymptomatic and so we will continue Flomax. May need follow-up with urology. (13) Urine retention: Status: Chronic Code(s): R33.9 - Retention of urine, unspecified (14) Orthostatic hypotension: Status: Acute Code(s): I95.1 - Orthostatic hypotension Plan: Mild, asymptomatic. (15) Chronic kidney disease, stage 3b: Status: Chronic Code(s): N18.32 - Chronic kidney disease, stage 3b Plan 1. Discharge home with family. will help to manage his medications. He will need / supervision because he has poor safety awareness and significant cognitive dysfunction. 2. Outpatient speech therapy 3. No DME needs 4. Will need a follow-up B12 level in 4 to 6 weeks. If B12 is still low or if the intrinsic factor antibody is positive we will likely need parental B12 supplementation. Medications at Discharge Home Medications aspirin 81 mg tablet 81 mg PO DAILY AFIB 04/23/25 cholecalciferol (vitamin D3) 50 mcg (2,000 unit) capsule 50 mcg PO DAILY supplement 04/23/25 glipizide 10 mg tablet 10 mg PO BID diabetes 04/23/25 levothyroxine 88 mcg capsule 88 mcg PO DAILY thyroid 04/23/25 lisinopril 20 mg tablet 20 mg PO DAILY blood pressure 04/23/25 metoprolol succinate 50 mg tablet,extended release 24 hr 50 mg PO DAILY heart rate 04/23/25 acetaminophen 325 mg tablet 650 mg (2 x 325 mg) PO Q6H PRN PRN Pain Score 1-10 #1 TAB 04/28/25 atorvastatin 40 mg tablet (Lipitor) 40 mg PO QHS cholesterol #30 tabs 04/28/25 magnesium chloride 64 mg (magnesium chloride) tablet,delayed release (Mag 64) 128 mg (2 x 64 mg) PO BID #60 tabs 04/28/25 tamsulosin 0.4 mg capsule 0.4 mg PO DAILY@1730 #30 caps 04/28/25 mecobalamin (vitamin B12) 1,000 mcg chewable tablet (B12 Active) 1,000 mcg PO DAILY #30 tabs 04/29/25 Hospital Course Operations None Procedures None Summary of Care Provided Minutes Spent on Discharge: 40 Hospital Course: Jonathan is an 85-year-old male with a past medical history of diabetes mellitus type 2, hypertension, chronic renal failure stage IIIb, BPH (he stopped taking Flomax), coronary artery disease, history of CABG, hyperlipidemia on atorvastatin and hypothyroidism who was knocked over by his dog and fell down some steps. He had loss of consciousness. He was transported to [facility] Emergency room as a level 1 trauma. Imaging revealed nondisplaced small sinus fractures with blood in the sinuses. There were no skull fractures. He had no intracerebral bleeding. During his hospitalization he was having episodes of atrial fibrillation with rapid ventricular response. He was started on metoprolol and a 30-day event monitor was applied at discharge. He was transferred to the acute inpatient rehab unit at [facility] on 04/23/2025 for 3 hours of therapy daily to restore function/independence at or near his level prior to the fall. Postvoid residuals were checked at admission to rehab and his highest postvoid residual was 388. He was started on Flomax 0.4 mg with supper. Orthostatic vital signs were checked prior to discharge and his blood pressure lying down is 156/65 with a heart rate of 95, sitting up the blood pressure was 131/65 with a heart rate of 87 and standing it was 122/59 with a heart rate of 80. This is consistent with orthostatic hypotension. It is not known whether he was orthostatic prior to the institution of Flomax. He is asymptomatic and denies lightheadedness. His hemoglobin at admission to rehab was 10.8 with an MCV of 96.9 and an RDW of 46. Prior to discharge the hemoglobin was 9.8 he was better hydrated. TSH was normal. B12 was low at 198. He was given 1000 mg IM of B12 on the date of discharge and started on 1000 mg daily orally. An intrinsic factor antibody was sent but is not resulted at the time of discharge from rehab. He will need a repeat B12 level in 4 to 6 weeks. If he is still being 12 deficient would consider parenteral B12 administration. Serum bicarb and mildly decreased at 20. He has a GFR of 42 which is consistent with stage IIIb chronic renal failure. He has been taking metformin which has a propensity of causing metabolic acidosis. Metformin was discontinued and the blood sugars remain well-controlled with no blood sugars over 200 and no hypoglycemia. He is taking glipizide 10 mg twice daily. He has had no hypoglycemia while on rehab but if his kidney function should decline would consider transitioning him to Amaryl which is excreted by the liver and not by the kidney. Magnesium level was low at 1.6 and he was started on a magnesium supplement. He will need a repeat magnesium level in 1 to 2 weeks. Jonathan did very well with physical therapy and Occupational Therapy. He is able to complete treatment first from various assist at mod I. He can do 10 sit to stands using his upper extremities to rise in 30 seconds. He has ambulated up to 630 feet with no assistive device over various surfaces at supervision and he has ambulated up to 165 feet at mod I on the rehab unit with no assistive device. He is able to ascend/descend 10 steps with 2 handrails at supervision. He is independent with eating, grooming, upper body dressing, toilet transfer and toileting. He is mod I for bathing and lower body dressing. He is supervision/set up for tub/shower transfer. Speech therapy is recommending ongoing outpatient speech therapy for cognitive dysfunction. The speech therapist also recommended 12/12 supervision and assistance with medication management. Jonathan was discharged on 04/29/2025 to home with his family. vessel slag worker is setting up outpatient speech therapy. He had no DME requirements. He has a follow-up appointment with Dr. Jose Frey on 04/30/2025. Prescriptions were sent to the [facility] retail pharmacy so that he would have them at discharge. Physical Exam Const alert and no apparent distress General Appearance: cooperative and well kempt HEENT moist oral mucous membranes HEENT Narrative: No evidence of thrush. Periorbital edema has decreased since admission. The small eschars on his forehead have either been picked off or fallen off. He had 1 suture and it was removed. The bruising around the eyes and on both cheeks is resolving. He denied any pain in his teeth or sinus pain. Eyes conjunctivae normal and no scleral icterus Eyes Narrative: No discharge from the eyes and no mattering of the eyelashes. No visual field cuts. Neck supple Chest Chest: symmetrical chest wall rise Resp normal respiratory effort and clear to auscultation bilaterally Effort and Inspection: able to speak in complete sentences Cardio regular rate, regular rhythm, no murmurs, no rub and no gallops Cardio Narrative: No ectopy. Heart monitor is present on the chest. GI normal to inspection, nondistended, normoactive bowel sounds, soft to palpation and non-tender no CVA tenderness Extremity no calf tenderness General Extremity: Negative for edema Skin General Skin Exam: no breakdown Wound Narrative: Hematoma on the left forehead is resolving. Neuro oriented x3, CN's II-XII intact bilaterally, moves all extremities and no focal motor deficits Psych cooperative, denies hallucinations, denies homicidal ideation and denies suicidal ideation Appearance: grossly normal, appropriate and well kempt Attitude: calm and engaged Activity / Motor Behavior: appropriate eye contact Weight / BMI Weight Weight: 164 lb 8.929 oz Body Mass Index (BMI) 22.3 ABG / Lab / Microbiology Data 04/28/25 05:35 04/28/25 05:35 Laboratory: Laboratory Results - last 24 hr 04/28/25 05:35: Vitamin B12 198, TSH 3.970 04/28/25 12:04: POC Glucose 169 H 04/28/25 16:07: POC Glucose 159 H 04/28/25 22:46: POC Glucose 124 H 04/29/25 06:37: POC Glucose 111 H Microbiology: Microbiology 04/29/25 00:55 Stool Stool Occult Blood (NAOMY) - Final Occult Blood Positive D/C Instructions Weight Bearing Status: Full weight bearing Call your doctor if you observe: Fever of 101 or Higher, Inability to urinate, Shortness of breath, Dizziness, Fainting spells, Swelling in the ankles, Chest pain, Increased palpitations (irregular heartbeat), Calf discomfort, Uncontrolled pain and - (STROKE symptoms: facial droop, slurred speech, inability to get words out, weakness on 1 side of the body and not the other, numbness on 1 side of the body and not the other, inability to maintain your balance sitting or standing, vertigo. ) DC O2, CPAP, BIPAP Needs Home O2 Discharge instructions: No Pending Tests Upon Discharge: None Please Follow Up With: Toyin Maxwell DO When: 04/30/2025 at 11 AM Meaningful Use Info Meaningful Use Meaningful Use Diagnoses (Choose all that apply): None applicable Discharge Plan Admission Admit Date/Time: 04/23/25 19:13 Primary Reason for Your Visit: Closed head injury/TBI Attending Provider: Mansi Mazariegos Primary Care Provider: Toyin Maxwell Instructions Patient Instructions: Alzheimer Disease, A-Fib Additional Instructions / Restrictions: 1. You had some small fractures of the sinuses with bleeding into the sinuses. Should you develop any face pain, fevers, dental pain, purulent discharge from the nose call your family physician. 2. You have problems with your prostate and you do not completely empty your bladder when you urinate. You were started on a medication called Flomax to improve the emptying of the bladder. In men who retain urine they are more likely to get urinary tract infections. The symptoms of urinary tract infection are burning with urination, increased frequency of urination, urinary urgency, nausea/vomiting, flank pain and increased confusion. If you have any of the symptoms call your family doctor. 3. You had a problem with the rhythm of your heart called atrial fibrillation. Atrial fibrillation can be intermittent and it increases the risk of stroke approximately 5 times. You have not been in atrial fibrillation when I have examined you on rehab. You are wearing a heart monitor and you will need to mail this back at the conclusion of the 30-day monitoring period. A travel trailer components assembler will review this and send a report to your primary care doctor. If you do have atrial fibrillation you may need to start an anticoagulant to prevent strokes. 4. The speech therapist at the hospital did an evaluation of your thought processes. We did a test called a brief cognitive assessment tool and it is a 50 point test. Out of 50 points you scored a 30 which is consistent with significant cognitive dysfunction. I suspect you have an underlying problem with memory which may have been exacerbated by the traumatic brain injury. I have given you some literature to read about Alzheimer's disease and possible treatments. Your doctor may want to refer you to a neurologist to be evaluated. You should have someone help you set up your pillboxes and manage your medications. 5. Your magnesium level is low and this can cause atrial fibrillation. You have been started on a magnesium supplement that you will take twice daily. Your doctor will want to repeat your magnesium level in another couple weeks. 6. You have chronic kidney disease. There are 5 stages of kidney failure. You are in stage III which is moderate kidney disease. Metformin can make acid accumulate in your blood when you have chronic kidney disease and so this medication was discontinued. You will continue to take glyburide. If your kidney function gets worse you will likely need to stop glimepiride and transition to another diabetic medication called Amaryl which is not excreted through the kidneys. Your doctor will want to keep track of your kidney function. 7. Your blood pressure drops a little when you go from lying to sitting and sitting to standing. You have no symptoms with this mild drop in blood pressures so there is no need to do anything at this point other than to make sure you drink plenty of fluids during the day. 8. If you or your family have any questions after you leave rehab please do not hesitate to call me. OFFICE: [phone] CELL: [phone] NURSES STATION ON REHAB: [phone] Discharge Orders/Prescriptions Prescriptions: New acetaminophen 325 mg Tablet 650 mg PO Q6H PRN PRN (Reason: Pain Score 1-10) Qty: 1 0RF tamsulosin 0.4 mg Capsule 0.4 mg PO DAILY@1730 Qty: 30 0RF magnesium chloride [Mag 64] 64 mg Tablet,Delayed Release (Dr/Ec) 128 mg PO BID Qty: 60 0RF mecobalamin (vitamin B12) [B12 Active] 1,000 mcg tablet,chewable 1,000 mcg PO DAILY Qty: 30 0RF Continued aspirin 81 mg tablet 81 mg PO DAILY cholecalciferol (vitamin D3) 50 mcg (2,000 unit) capsule 50 mcg PO DAILY glipizide 10 mg tablet 10 mg PO BID levothyroxine 88 mcg capsule 88 mcg PO DAILY lisinopril 20 mg tablet 20 mg PO DAILY metoprolol succinate 50 mg tablet extended release 24 hr 50 mg PO DAILY atorvastatin [Lipitor] 40 mg tablet 40 mg PO QHS Qty: 30 0RF Discontinued metformin [Glucophage XR] 500 mg tablet extended release 24 hr 500 mg PO BID Referrals / Follow Up: Toyin Maxwell DO [Primary Care Provider, [facility]] - 04/30/25 11:00 am Disposition Disposition (needs filled in before D/C Order can be placed): Home, Self Care Charges/Coding Visit Charges Inpatient E&M: 08997 Disch Hosp >30min
[2025-04-29] MEDS: Cyanocobalamin (B12) 1,000 MCG/ML Vial 1000 MCG IM (10:05)
--- NOTE | 2025-04-29 14:27 | CASEMGMT ---
Social Work SW phoned to follow up on [facility]. next prefers [facility]. SW offered [facility] and agreed. SW to place referral and [facility] to contact to schedule. - Faxed referral to [facility]. Wendy Cruz [employer] CONSULTING ARCHITECT CONCRETE PAVER
[2025-04-29 17:40] VITALS: BP 130/60; PULSE 72
--- NOTE | 2025-04-29 18:44 | NURSING ---
discharged home with family. discharged instructions, medications and appointments reviewed with pt and family. denies questions or concerns
== END 2025-04-29 18:46 | disposition home or self-care (01) | DRG 949 ==
PROVIDERS: Admitting Provider Internal Medicine; PCP Family Medicine; Visit Provider Internal Medicine
DX: S06.0X1D Concussion with loss of consciousness of 30 minutes or less, subsequent encounter (principal); E87.20 Acidosis, unspecified; N13.8 Other obstructive and reflux uropathy; D51.8 Other vitamin B12 deficiency anemias; N18.32 Chronic kidney disease, stage 3b; E11.22 Type 2 diabetes mellitus with diabetic chronic kidney disease; E03.9 Hypothyroidism, unspecified; I12.9 Hypertensive chronic kidney disease with stage 1 through stage 4 chronic kidney disease, or unspecified chronic kidney disease; I48.91 Unspecified atrial fibrillation; E83.42 Hypomagnesemia; I25.10 Atherosclerotic heart disease of native coronary artery without angina pectoris; E78.5 Hyperlipidemia, unspecified; I95.1 Orthostatic hypotension; W10.9XXD Fall (on) (from) unspecified stairs and steps, subsequent encounter; F09 Unspecified mental disorder due to known physiological condition; Z79.84 Long term (current) use of oral hypoglycemic drugs; N40.1 Benign prostatic hyperplasia with lower urinary tract symptoms; R33.8 Other retention of urine; R39.14 Feeling of incomplete bladder emptying; Z79.899 Other long term (current) drug therapy; Z79.890 Hormone replacement therapy; T38.3X5D Adverse effect of insulin and oral hypoglycemic [antidiabetic] drugs, subsequent encounter
CPT/HCPCS: 36415; 80048; 80053; 82274; 82607; 82962; 83735; 84100; 84443; 85014; 85018; 85025; 86340; 92507; 92523; 94668; 97110; 97116; 97150; 97162; 97167; 97530; 97535; 97802; A4216; J3420